=== PATIENT | male | born 1995 | race Caucasian/White ===

== ENCOUNTER 2017-09-05 19:18 | Emergency (ER) | payer OTHER ==
[~2017-09-05] VITALS: Ht 170.2 cm; Wt 72.6 kg
[~2017-09-05 19:18] MED LIST: ARIP5TAB8 PO
--- NOTE | 2017-09-05 19:18 | NUR ---
BIBA TO ER BED 3
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
[2017-09-05 19:30] VITALS: BP 132/74
[2017-09-05] MEDS ORDERED: KETOROLAC 30 MG/ML VIAL IM ONE (19:55)
[2017-09-05] MEDS ORDERED: DIAZEPAM 5 MG TAB PO ONE (19:55)
[2017-09-05] MEDS ORDERED: ALBUTEROL SULFATE/IPRATROPIU 3 ML SOL IH ONE (20:00)
[2017-09-05] MEDS ORDERED: IBUPROFEN 600 MG TAB PO ONE (20:05)
--- NOTE | 2017-09-05 20:14 | NUR ---
1950 PATIENT REFUSED HHNTX. BS ARE CLEAR. DR DAVIS AWARE
[2017-09-05 22:14] VITALS: BP 132/74
--- NOTE | 2017-09-05 22:14 | NUR ---
Patient discharged with v/s stable. Written and verbal after care instructions given and explained. Patient verbalized understanding. Ambulatory with steady gait. All questions addressed prior to discharge. Advised to follow up with PMD.
== END 2017-09-05 22:14 | disposition home or self-care (01) ==
LOC: MED 19:18
DX: G89.29 Other chronic pain (principal); M54.5 Low back pain; F41.9 Anxiety disorder, unspecified; J45.909 Unspecified asthma, uncomplicated; Z71.6 Tobacco abuse counseling; Z79.899 Other long term (current) drug therapy
CPT/HCPCS: 99283; J1885; J7620

== ENCOUNTER 2018-12-31 10:31 | Emergency (ER) | payer OTHER ==
[~2018-12-31] VITALS: Ht 170.2 cm; Wt 72.6 kg
--- NOTE | 2018-12-31 10:31 | NUR ---
TAKEN TO EYE WASH TO FLUSH EYES; AFTER PT TAKEN TO RESTROOM AND WASHED FACE WITH SOAP AND WATER WITH WASHCLOTH
--- NOTE | 2018-12-31 10:34 | NUR ---
PT BIBA BLS TO BED 10
[2018-12-31 10:35] VITALS: BP 131/69
--- NOTE | 2018-12-31 10:35 | NUR ---
PT MOVED TO BED 1
--- NOTE | 2018-12-31 10:40 | NUR ---
PT INCREASINGLY AGGITATED 2 TO BURNING SENSATION TO FACE---FACE WASHED WITH SOAP AND WATER AGAIN---PT ADMITS SOOTHING BUT REMAINS WITH FREQUENT OUTBURST OF AGGITATION. FREQUENT REDIRECTING REQUIRED HOMER EMT REMAINS AT BEDSIDE
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
--- NOTE | 2018-12-31 10:42 | NUR ---
Patient being evaluated by physician at bedside.
[2018-12-31] MEDS ORDERED: diphenhydrAMINE 50 MG/ML VIAL IM ONE (10:45)
[2018-12-31] MEDS ORDERED: HALOPERIDOL IM 5 MG/ML VIAL IM ONE (10:45)
--- NOTE | 2018-12-31 11:41 | NUR ---
PT IS ASLEEP IN BED WITH VSS AT THIS TIME
--- NOTE | 2018-12-31 11:57 | NUR ---
FOOD ORDERED FOR PT, PT IS AWAKE SITTING UP IN BED, NO MORE EYE PAIN
--- NOTE | 2018-12-31 12:11 | NUR ---
PT UP IN BED EATING AT THIS TIME
--- NOTE | 2018-12-31 12:21 | NUR ---
Note undone in EDM - 12/31/18 at 1224 by MEDFL Patient discharged with v/s stable. Written and verbal after care instructions given and explained. Patient alert, oriented and verbalized understanding of instructions. Ambulatory with steady gait. All questions addressed prior to discharge. ID band removed. Patient advised to follow up with PMD. Rx of norco, naprosyn, omeprazole given. Patient educated on indication of medication including possible reaction and side effects. Opportunity to ask questions provided and answered.
[2018-12-31 13:45] VITALS: BP 121/64
--- NOTE | 2018-12-31 13:45 | NUR ---
Patient given taxi voucher and waiting in room for arrival. Patient discharged with v/s stable. Written and verbal after care instructions given and explained. Patient verbalized understanding. Ambulatory with steady gait. All questions addressed prior to discharge. Advised to follow up with PMD.
== END 2018-12-31 13:45 | disposition home or self-care (01) ==
LOC: MED 10:31
DX: H10.213 Acute toxic conjunctivitis, bilateral (principal); J45.909 Unspecified asthma, uncomplicated; Z77.098 Contact with and (suspected) exposure to other hazardous, chiefly nonmedicinal, chemicals; Z79.899 Other long term (current) drug therapy
CPT/HCPCS: 96372; 99283; J1200; J1630